=== PATIENT | male | born 2000 | race Caucasian/White ===

== ENCOUNTER 2022-01-23 02:54 | Observation (INO) | payer OTHER, SELFPAY ==
[2022-01-23 01:07] VITALS: BP 117/63; PULSE 58; RESP 17; TEMP 36.4; O2SAT 100; BMI 23.0
--- NOTE | 2022-01-23 01:11 | ADMGEN ---
This patient, Devon Ely, was admitted to Medical Room 249-01. Patient/family oriented to hospital policies and general routines including ID bracelet, bed and alarms, visiting hours, pain management, procedures, bathroom and other care routines, personal items, smoking policy, room service/diet, and visiting hours. Information on how to activate the Rapid Response Team has been discussed. Patient/Family are encouraged to report perceived risks to care and to ask questions if they do not understand what they are told or what they should do.
--- NOTE | 2022-01-23 02:56 | PM.IMHP ---
H&P: HPI History of Present Illness Date/Time: 01/23/22 02:56 Chief Complaint: Face swelling. Narrative: This is a 21-year-old male with past medical history significant for tobacco dependence patient smokes 1 pack a day, patient comes acid direct admission from outside hospital due to right phase submandibular abscess patient had drain earlier in however reoccurred This has been going on for the last week or so, patient denies any trouble swallowing, or chills, or rigors, had a temp of 99? denies any nausea, vomiting, believes is secondary to a bad tooth. PATIENT IS HERE FOR FURTHER EVALUATION MANAGEMENT AND TREATMENT PAIR OUR ENT DOCTOR. Review of Systems Review of Systems: right face swelling at the mandible, low-grade temp. Constitutional: Constitutional: Denies body ache(s), Denies chills, Denies fatigue, Reports fever(s), Denies malaise, Denies night sweats and Denies poor appetite Eyes: Eyes: Denies change in vision ENT: Denies dysphagia, Reports facial pain, Denies hoarseness, Reports neck pain, Denies odynophagia, Denies sore throat and Reports other ( right face swelling with abscess formation at the angle of the jaw) Cardiovascular: Cardiovascular: Denies chest pain, Denies syncope, Denies irregular heart rhythm, Denies lightheadedness, Denies palpitations, Denies dyspnea on exertion and Denies paroxysmal nocturnal dyspnea Respiratory: Respiratory: Denies chest congestion, Denies cough, Denies excessive phlegm production, Denies pain on inspiration and Denies dyspnea Gastrointestinal: Gastrointestinal: Denies dyspepsia, Denies heartburn, Denies diarrhea, Denies nausea and Denies vomiting Genitourinary: Genitourinary: Denies dysuria Musculoskeletal: Musculoskeletal: Denies back pain, Denies myalgias, Denies joint swelling and Denies muscle weakness Integumentary/Breasts: Skin/Breast: Denies rash Neurologic: Denies vertigo, Denies dizziness, Denies focal weakness and Denies Sensory deficit (Neuro) Psychiatric: Psychiatric: Reports no additional psychiatric complaints and Reports as per HPI Endocrine: Endocrine: Denies cold intolerance, Denies flushing, Denies heat intolerance, Denies polyphagia, Denies polydipsia and Denies palpitations Hematologic/Lymphatic: Hematologic/Lymphatic: Reports no additional hematologic/lymphatic complaints and Reports as per HPI Allergic/Immunologic: Allergic/Immunologic: Reports no additional allergic/immunologic complaints and Reports as per HPI [facility] Family History Family History (Updated 01/23/22 @ 01:24 by Esau Askew RN) Sibling Asthma Grandparent Diabetes mellitus Social History Social History Smoking packs per day: 1 Smoking cigarettes per day: 20.0 Years smoked: 6 Smoking pack-years: 6.00 Smoking status: Current every day smoker Tobacco type: cigarettes Alcohol intake: current Drinks per week: 1 Substance use: never Spiritual care concerns: No Meds Home Medications and Allergies Home Medications Medication Instructions Recorded Confirmed Type No Home Medications 01/23/22 01/23/22 History Allergies Allergy/AdvReac Type Severity Reaction Status Date / Time cefaclor [From Ceclor] AdvReac Vomiting Verified 01/23/22 03:06 augmentin AdvReac Vomiting Uncoded 01/23/22 03:06 Vital Signs Vital Signs - 24 hr 01/23/22 01:05 01/23/22 01:07 Temperature 97.6 F Pulse Rate 58 L Respiratory Rate 17 Blood Pressure 117/63 Pulse Oximetry 100 Oxygen Delivery Room Air Exam Narrative: patient is laying in bed Const: General: comfortable, no acute distress, well developed, alert and awake Nutritional Appearance: average body habitus Orientation/consciousness: patient oriented x3 HENMT: Head: normal to inspection, normocephalic and atraumatic Ears: hearing grossly normal bilaterally Face and sinus: face symmetric ( asymmetric), erythema, edema, fluctuance and Facial tenderness on exam of face and sinuses (
[2022-01-23 03:34] VITALS: BP 109/64; PULSE 64; RESP 18; TEMP 36.5; O2SAT 100
[2022-01-23] MEDS: AMPICILLIN SULB 3 GM/NS 100 ML 3 GM/100 ML VIAL IVPB ×3 (04:18→17:57)
[2022-01-23] MEDS: SODIUM CHLORIDE 0.9% IV 1,000 ML 75 ML IV CONT (04:18)
[2022-01-23 05:53] LABS: Basophils Percent Auto 0.1 % (0.2-1.2); Eosinophils Absolute Auto 0.3 K/mm3 (0-0.3); Eosinophils Percent Auto 3.1 % (0-4.4); Hematocrit 40.5 % (42.0-52.0); Hemoglobin 13.7 g/dL (14.0-18.0); Immature Granulocyte Absolute 0.02 K/mm3 (0.00-0.031); Immature Granulocyte Percent A 0.2 % (0-0.5); Lymphocytes Absolute Auto 2.29 K/mm3 (0.9-3.2); Lymphocytes Percent Auto 27.4 % (18.3-44.2); Mean Corpuscular HGB Conc 33.8 g/dl (32-36); Mean Corpuscular Hemoglobin 31.8 pg (26-34); Mean Platelet Volume 9.6 fl (7.4-10.4); Monocytes Absolute Auto 0.8 K/mm3 (0.1-0.6); Neutrophils Percent Auto 60.2 % (45.5-73.1); Platelet Count Result 197 k/mm3 (150-375); Red Blood Count 4.31 M/mm3 (4.6-6.20); Red Cell Distribution Width 12.4 % (11.5-14.5); White Blood Count 8.4 K/mm3 (4.5-10.0)
[2022-01-23 06:04] LABS: Anion Gap 9 mmol/L (8-16); Blood Urea Nitrogen 12 mg/dL (9-20); Calcium 8.9 mg/dL (8.4-10.2); Carbon Dioxide 27 mmol/L (22-30); Chloride 103 mmol/L (98-107); Estimated CRCL calculation 112 ml/min; Estimated Glomerular Filt Rate > 60; Glucose 104 mg/dL (65-110); Potassium 3.6 mmol/L (3.4-5.0); Sodium 139 mmol/L (137-145)
[2022-01-23] MEDS: ENOXAPARIN 40 MG/0.4 ML SYRINGE SUB-Q (09:54)
[2022-01-23 10:15] VITALS: BP 121/70; PULSE 59; RESP 16; TEMP 36.4; O2SAT 100
[2022-01-23] MEDS: NICOTINE (*PBKC) 21 MG PATCH 1 PATCH TRANSDERM (11:59)
[2022-01-23] MEDS: SODIUM CHLORIDE 0.9% IV 1,000 ML 110 ML IV CONT ×2 (12:00→22:25)
[2022-01-23] MEDS: traMADol HCL (*CRX) 25 MG TABLET PO ×3 (13:18→22:25)
[2022-01-23 13:45] VITALS: BP 119/65; PULSE 71; RESP 16; TEMP 36.1; O2SAT 100
--- NOTE | 2022-01-23 17:31 | WPDCN ---
Assessment and Plan Assessment and plan (1) Submandibular abscess: Code(s): K12.2 - Cellulitis and abscess of mouth Status: Acute Assessment and Plan: Plan OR incision drainage of submandibular abscess transcervical will consider transoral intraoperatively. Risks discussed this is right-sided, risks discussed including bleeding infection stroke need for further procedures failure to resolve symptoms. Damage to marginal mandibular nerve damage to greater auricular nerve facial paralysis. Patient voiced understanding and agreed. Please obtain consent for incision and drainage transcervical and transoral of right submandibular abscess. NPO at midnight continue antibiotics repeat CBC a.m. 826. HPI Data of Consult Date/Time: 01/23/22 17:31 Requesting Physician: Raul Craven DO Primary Care Provider: PHYSICIAN NOT ON STAFF Consult Narrative Reason for consult: Right neck abscess Narrative: Devon Ely is a 21 year old male with multiple dental aisha CT personally reviewed demonstrates likely right-sided loculated submandibular fluid. White count did normalize today but the patient has concerning examination. Review of Systems Review of Systems: All systems reviewed & are unremarkable except as noted in HPI and below PMFSH Family History Family History (Updated 01/23/22 @ 01:24 by Esau Askew RN) Sibling Asthma Grandparent Diabetes mellitus Social History Social History Smoking packs per day: 1 Smoking cigarettes per day: 20.0 Years smoked: 6 Smoking pack-years: 6.00 Smoking status: Current every day smoker Tobacco type: cigarettes Alcohol intake: current Drinks per week: 1 Substance use: never Spiritual care concerns: No Meds Home Medications and Allergies Home Medications Medication Instructions Recorded Confirmed Type No Home Medications 01/23/22 01/23/22 History Allergies Allergy/AdvReac Type Severity Reaction Status Date / Time cefaclor [From Ceclor] AdvReac Vomiting Verified 01/23/22 03:06 augmentin AdvReac Vomiting Uncoded 01/23/22 03:06 Vital Signs Vital Signs - 24 hr 01/23/22 01:05 01/23/22 01:07 01/23/22 03:34 Temperature 36.4 C 36.5 C Pulse Rate 58 L 64 Respiratory Rate 17 18 Blood Pressure 117/63 109/64 Pulse Oximetry 100 100 Oxygen Delivery Room Air 01/23/22 08:00 01/23/22 10:15 01/23/22 13:45 Temperature 36.4 C 36.1 C L Pulse Rate 59 L 71 Respiratory Rate 16 16 Blood Pressure 121/70 119/65 Pulse Oximetry 100 100 Oxygen Delivery Room Air Exam Narrative: Right-sided ballotable induration trismus dental caries no obvious connection to the oral cavity Results Labs CBC & Chem 7: 01/23/22 05:07 01/23/22 05:07 Labs: Short CBC 01/23/22 Range/Units 05:07 WBC 8.4 (4.5-10.0) K/mm3 Hgb 13.7 L (14.0-18.0) g/dL Hct 40.5 L (42.0-52.0) % Plt Count 197 (150-375) k/mm3 BMP 01/23/22 05:07 Sodium 139 Potassium 3.6 Chloride 103 Carbon Dioxide 27 BUN 12 Creatinine 0.90 Glucose 104 Calcium 8.9
[2022-01-23 20:00] VITALS: PULSE 71; RESP 16; O2SAT 100
[2022-01-23] MEDS: MELATONIN 5 MG TABLET PO (22:26)
[2022-01-23 22:30] VITALS: BP 128/78; PULSE 62; RESP 14; TEMP 37.1; O2SAT 100
[2022-01-24] VITALS (9 sets, daily range): BP systolic 112–135; BP diastolic 71–88; PULSE 67–95; RESP 13–20; TEMP 36.3–37.1; O2SAT 96–100
[2022-01-24] MEDS: AMPICILLIN SULB 3 GM/NS 100 ML 3 GM/100 ML VIAL IVPB ×4 (00:03→17:37)
--- NOTE | 2022-01-24 07:08 | WPDANESEPPF ---
Anes - Initial Pre Proc Eval Procedure: Operation Date: 01/24/22 13:15 Proposed Procedures p Drainage Of Submandibular Abscess,Transcervical Possible Transoral - Lnein Christensen MD Date/Time: 01/24/22 07:08 Surgeon: Raul Craven DO Pre Op Diagnosis: Right Submandibular Abscess Patient Data Age: 21 Gender: M Height: 1.75 m Weight: 70.7 kg Last Vital Signs Temp 37.1 C 01/24/22 06:40 Pulse 72 01/24/22 06:40 Resp 16 01/24/22 06:40 BP 128/79 01/24/22 06:40 Pulse Ox 98 01/24/22 06:40 O2 Del Method Room Air 01/23/22 20:00 Allergies Allergy/AdvReac Type Severity Reaction Status Date / Time cefaclor [From Ceclor] AdvReac Vomiting Verified 01/23/22 03:06 augmentin AdvReac Vomiting Uncoded 01/23/22 03:06 Home Medications Medication Instructions Recorded Confirmed Type No Home Medications 01/23/22 01/23/22 History Patient hx anesthesia problems: none Family hx anesthesia problems: none Results Review: All pre-operative results and documents have been reviewed as part of the pre-operative evaluation. FORMERLY [facility] Past Medical History Medical History (Updated 01/24/22 @ 07:09 by Fidencio Padilla MD) Submandibular abscess Tobacco dependence Family History Family History (Updated 01/23/22 @ 01:24 by Esau Askew RN) Sibling Asthma Grandparent Diabetes mellitus Social History Social History Smoking packs per day: 1 Smoking cigarettes per day: 20.0 Years smoked: 6 Smoking pack-years: 6.00 Smoking status: Current every day smoker Tobacco type: cigarettes Alcohol intake: current Drinks per week: 1 Substance use: never Spiritual care concerns: No Anes - Eval Final PreProcedure Day of Procedure 01/24/22 07:08 Patient weight: normal Heart: regular rate and rhythm Lungs: clear to auscultation and normal air movement Airway: Mallampati scale class II Neurological: alert and oriented Last oral intake: >/= 8 hours ASA classification: II Emergent: no Anesthetic plan: proceed Anesthesia type and monitoring: general LMA and ETT Results Review: All pre-operative results and documents have been reviewed as part of the pre-operative evaluation. Informed Consent: The patient's anesthetic plan and its attendant risks and benefits were discussed with the patient/family/POA. Questions were solicited and answers provided to the satisfaction of the patient/family/POA.
--- NOTE | 2022-01-24 07:55 | PM.IMHP ---
H&P: HPI History of Present Illness Date/Time: 01/24/22 07:55 Chief Complaint: Right submandibular abscess Narrative: Planned surgical procedure/at on Review of Systems Review of Systems: All systems reviewed & are unremarkable except as noted in HPI and below [facility] Past Medical History Medical History (Updated 01/24/22 @ 07:09 by Fidencio Padilla MD) Submandibular abscess Tobacco dependence Family History Family History (Updated 01/23/22 @ 01:24 by Esau Askew RN) Sibling Asthma Grandparent Diabetes mellitus Social History Social History Smoking packs per day: 1 Smoking cigarettes per day: 20.0 Years smoked: 6 Smoking pack-years: 6.00 Smoking status: Current every day smoker Tobacco type: cigarettes Alcohol intake: current Drinks per week: 1 Substance use: never Spiritual care concerns: No Meds Home Medications and Allergies Home Medications Medication Instructions Recorded Confirmed Type No Home Medications 01/23/22 01/23/22 History Allergies Allergy/AdvReac Type Severity Reaction Status Date / Time cefaclor [From Ceclor] AdvReac Vomiting Verified 01/23/22 03:06 augmentin AdvReac Vomiting Uncoded 01/23/22 03:06 Vital Signs Vital Signs - 24 hr 01/23/22 08:00 01/23/22 10:15 01/23/22 13:45 Temperature 36.4 C 36.1 C L Pulse Rate 59 L 71 Respiratory Rate 16 16 Blood Pressure 121/70 119/65 Pulse Oximetry 100 100 Oxygen Delivery Room Air 01/23/22 20:00 01/23/22 22:30 01/24/22 06:40 Temperature 37.1 C 37.1 C Pulse Rate 71 62 72 Respiratory Rate 16 14 16 Blood Pressure 128/78 128/79 Pulse Oximetry 100 100 98 Oxygen Delivery Room Air Exam Const: Other: Right submandibular induration CT with abscess. Ballotable likely abscess Assessment and Plan Assessment and plan (1) Submandibular abscess: Code(s): K12.2 - Cellulitis and abscess of mouth Status: Acute (2) Cellulitis and abscess of face: Code(s): L03.211 - Cellulitis of face; L02.01 - Cutaneous abscess of face Status: Acute Plan Plan OR transcervical incision drainage right submandibular gland abscess possible transoral risks discussed including bleeding infection failure to resolve symptoms need for further procedures damage to marginal mandibular nerve stroke need for drain placement need for prolonged hospitalization antibiotics. Patient voiced understanding and agreed.
--- NOTE | 2022-01-24 07:56 | WPDHPUPDATE1 ---
History and Physical Update Update Date/Time: 01/24/22 07:56 History and Physical has been reviewed, including an updated exam of the patient. There are NO changes in the patient's condition. Risks, benefits, and alternatives have been discussed and questions answered. Patient agrees to proceed with procedure.
[2022-01-24] MEDS: SODIUM CHLORIDE 0.9% IV 1,000 ML 110 ML IV CONT (08:40)
[2022-01-24] MEDS: NICOTINE (*PBKC) 21 MG PATCH 1 PATCH TRANSDERM (08:40)
[2022-01-24] MEDS: MORPHINE SULFATE (*CRX) 2 MG/ML INJ IV PUSH ×2 (09:24→17:42)
--- NOTE | 2022-01-24 11:50 | PC.NURSE ---
pt transferred to surgery via bed.
[2022-01-24] MEDS: LACTATED RINGERS 1,000 ML 30 ML IV CONT (12:15)
[2022-01-24] MEDS: fentaNYL CITRATE INJ (*CRX) 100 MCG/2 ML VIAL 25 MCG IV PUSH ×4 (14:52→14:58)
--- NOTE | 2022-01-24 14:56 | PM.PNGS ---
Progress Note: A&P Assessment and Plan (1) Submandibular abscess: Code(s): K12.2 - Cellulitis and abscess of mouth Status: Acute Assessment and Plan: follow-up culture data, okay to DC once appropriate oral regimen identify, daily CBC, okay for diet, if discharged prior to next week follow-up for drain removal early next week Subjective Subjective Date/Time Seen: 01/24/22 14:56 Interval history: Donze right-sided deep neck space abscess Objective Data Vital Signs Vital Signs: Vital Signs - 24 hr 01/23/22 20:00 01/23/22 22:30 01/24/22 06:40 Temperature 37.1 C 37.1 C Pulse Rate 71 62 72 Respiratory Rate 16 14 16 Blood Pressure 128/78 128/79 Pulse Oximetry 100 100 98 Oxygen Delivery Room Air Oxygen Flow Rate 01/24/22 08:30 01/24/22 11:59 01/24/22 14:35 Temperature 37.1 C 36.6 C Pulse Rate 78 79 Respiratory Rate 16 16 Blood Pressure 121/74 135/79 Pulse Oximetry 100 100 Oxygen Delivery Room Air Room Air Simple Face Mask Oxygen Flow Rate 10 01/24/22 14:45 Temperature Pulse Rate 76 Respiratory Rate 13 Blood Pressure 128/71 Pulse Oximetry 100 Oxygen Delivery Simple Face Mask Oxygen Flow Rate 10 Intake/Output Intake/Output: Intake & Output 01/21/22 01/22/22 01/23/22 01/24/22 23:59 23:59 23:59 23:59 Intake Total 2040 1300 Output Total 1325 2600 Balance 715 -1300 Meds/Results Medications: Active Medications Generic Name Dose Route Start Last Admin Trade Name Freq PRN Reason Stop Dose Admin Acetaminophen 650 mg 01/23/22 02:54 Acetaminophen 325 Mg Tablet PO Q4H PRN Mild Pain (1-3) or Fever Al Hydrox/Mg Hydrox/Simethicone 30 ml 01/23/22 02:54 Mag Hydrox/Al Hydrox/Simeth 30 Ml Udc PO QID PRN Dyspepsia Fentanyl Citrate 25 mcg 01/24/22 07:07 01/24/22 14:56 Fentanyl Citrate Inj (*Crx) 100 Mcg/2 Ml Vial IV PUSH 25 mcg Q2M PRN Administration Pain Sodium Chloride 1,000 mls @ 110 mls/hr 01/23/22 02:55 01/24/22 08:40 Normal Saline Iv IV CONT 110 mls/hr .Q9H6M TILA Administration Ampicillin Sodium/Sulbactam Sodium 3 gm in 100 mls @ 200 mls/hr 01/23/22 12:00 01/24/22 12:30 Unasyn 3 Gm/Ns 100 Ml IVPB Infused Q6HR TILA Infusion Lactated Ringer's 1,000 mls @ 30 mls/hr 01/24/22 07:10 01/24/22 14:35 Lr - Lactated Ringers Iv IV CONT 30 mls/hr .Q24H TILA Infusion Lactated Ringer's 1,000 mls @ 30 mls/hr 01/24/22 07:10 Lr - Lactated Ringers Iv IV CONT .Q24H TILA Melatonin 5 mg 01/23/22 21:00 01/23/22 22:26 Melatonin 5 Mg Tablet PO 5 mg HS TILA Administration Morphine Sulfate 2 mg 01/24/22 08:49 01/24/22 09:24 Morphine Sulfate (*Crx) 2 Mg/Ml Inj IV PUSH 2 mg Q4H PRN Administration Pain Rated 7-10 Nicotine 1 patch 01/23/22 09:00 01/24/22 08:40 Nicotine (*Pbkc) 21 Mg Patch TRANSDERM 1 patch QAM TILA Administration Ondansetron HCl 4 mg 01/23/22 02:54 Ondansetron Inj 4 Mg/2 Ml Vial IV PUSH Q6H PRN Nausea And Vomiting Ondansetron HCl 4 mg 01/24/22 07:07 Ondansetron Inj 4 Mg/2 Ml Vial IV PUSH ONCE PRN Nausea Oxycodone HCl 5 mg 01/24/22 07:07 Oxycodone Hcl (*Crx) 5 Mg Tab Ir PO ONCE PRN Pain Tramadol HCl 25 mg 01/23/22 02:54 01/23/22 22:25 Tramadol Hcl (*Crx) 25 Mg Tablet PO 25 mg Q4H PRN Administration Pain Rated 4-6
--- NOTE | 2022-01-24 14:59 | P.OP_ITS ---
Procedure Note - Detailed Date of Procedure 01/24/22 Pre-op Diagnosis Right Submandibular Abscess Post-op Diagnosis Same Procedure Performed transcervical incision and drainage of right-sided submandibular abscess Surgeon Lenin Christensen MD Medical Assistant Cardiology call Anesthesia General Indications see above Findings copious amounts of purulence drained cultured Spicer placed Description of Procedure patient identified consent verified. Patient brought operating. Time-out performed. General anesthesia induced endotracheal tube secured patient's airway. Patient prepped and draped 2nd time-out. 1 cc 1% lidocaine 1 1000 parts epinephrine injected into the subcutaneous tissue overlying the greatest area of fluctuance in the submandibular region large over the body of the mandible. Skin incised with 15 blade blunt dissection carried out abscess copious amounts of purulence identified somewhat deeper expected. This was cultured. No excessive bleeding. The abscess pocket was then further explored breaking loculations. The wound was then copiously irrigated with sterile in a sterile normal saline. Bing drain placed sutured to the skin with the 3 0 interrupted nylon suture. Blood loss about 5 cc. I performed all dictated portions of the procedure. There no complications. Patient taken to PACU in given over to Anesthesiology. Estimated Blood Loss -5.0 Urine Output 1,000 Drains Yes ( Spicer) Packing No Pathology None sent Complications No immediate complications Condition Stable Disposition PACU
--- NOTE | 2022-01-24 15:28 | PM.IMPN ---
Progress Note: A&P Assessment and Plan (1) Submandibular abscess: Code(s): K12.2 - Cellulitis and abscess of mouth Status: Acute Assessment and Plan: Likely precipitated by poor dentition as well as chronic smoking and THC use. ENT following, plan for I and D today. Continue Unasyn. Morphine p.r.n. for pain. (2) Tobacco dependence: Code(s): F17.200 - Nicotine dependence, unspecified, uncomplicated Status: Acute Assessment and Plan: Counseled patient on smoking cessation Subjective Date/time seen: 01/24/22 15:28 Patient down in the OR this afternoon for I&D. Report pain this morning and his jaw. Review of Systems Review of Systems: Ten point ROS reviewed, negative unless otherwise specified. PI Exam Narrative: patient is laying in bed Const: General: comfortable, no acute distress, well developed, alert and awake Nutritional Appearance: average body habitus Orientation/consciousness: patient oriented x3 HENMT: Head: normal to inspection, normocephalic and atraumatic Ears: hearing grossly normal bilaterally Face and sinus: face symmetric ( asymmetric), erythema, edema, fluctuance and Facial tenderness on exam of face and sinuses ( right-sided) Eyes: General: appearance normal, both eyes and all related structures Pupils: Equal, round and reactive pupils present EOM: EOMs intact bilaterally Neck: Neck: full ROM, no lymphadenopathy and no JVD Thyroid: thyroid normal Lymphatic: no lymphadenopathy noted Resp: Effort & Inspection: normal respiratory effort and able to speak in complete sentences Auscultation: clear to auscultation bilaterally Cardio: Jugular venous distension: no JVD Rate: regular rate Rhythm: regular rhythm Heart sounds: S1 normal heart sound present and S2 normal heart sound present GI: GI Palp: Yes Soft to palpation and Yes No hepatosplenomegaly present : General: Yes deferred Skin: Rashes: no rashes Wounds: no wounds Neuro: General: patient oriented x3 and CN's II-XI intact bilaterally Cranial nerves: Yes CN's II-XII intact bilaterally and Yes Equal, round and reactive pupils present Cognition (Neuro): normal cognition Speech: normal speech Gait exam (Neuro): Normal gait present Motor exam (neuro): 5/5 motor strength present throughout Extrem: General: normal to inspection, full ROM, no joint enlargement and no pedal edema Objective Data Vital Signs Vital Signs: Vital Signs - 24 hr 01/23/22 20:00 01/23/22 22:30 01/24/22 06:40 Temperature 98.7 F 98.7 F Pulse Rate 71 62 72 Respiratory Rate 16 14 16 Blood Pressure 128/78 128/79 Pulse Oximetry 100 100 98 Oxygen Delivery Room Air Oxygen Flow Rate 01/24/22 08:30 01/24/22 11:59 01/24/22 14:35 Temperature 98.7 F 97.8 F Pulse Rate 78 79 Respiratory Rate 16 16 Blood Pressure 121/74 135/79 Pulse Oximetry 100 100 Oxygen Delivery Room Air Room Air Simple Face Mask Oxygen Flow Rate 10 01/24/22 14:45 01/24/22 15:00 01/24/22 15:15 Temperature Pulse Rate 76 95 73 Respiratory Rate 13 15 20 Blood Pressure 128/71 124/88 129/83 Pulse Oximetry 100 100 96 Oxygen Delivery Room Air Room Air Room Air Oxygen Flow Rate 01/24/22 15:21 Temperature Pulse Rate 76 Respiratory Rate 15 Blood Pressure 129/81 Pulse Oximetry 96 Oxygen Delivery Room Air Oxygen Flow Rate Intake/Output Intake/Output: Intake & Output 01/21/22 01/22/22 01/23/22 01/24/22 23:59 23:59 23:59 23:59 Intake Total 2040 1500 Output Total 1325 3600 Balance 715 -2100 Meds/Results Medications: Active Medications Generic Name Dose Route Start Last Admin Trade Name Freq PRN Reason Stop Dose Admin Acetaminophen 650 mg 01/23/22 02:54 Acetaminophen 325 Mg Tablet PO Q4H PRN Mild Pain (1-3) or Fever Al Hydrox/Mg Hydrox/Simethicone 30 ml 01/23/22 02:54 Mag Hydrox/Al Hydrox/Simeth 30 Ml Udc PO QID PRN Dyspepsia Fentanyl Citrate 25 mcg 01/24/22
--- NOTE | 2022-01-24 15:32 | PC.NURSE ---
pt returned from surgery
[2022-01-24] MEDS: MELATONIN 5 MG TABLET PO (20:50)
[2022-01-25] MEDS: AMPICILLIN SULB 3 GM/NS 100 ML 3 GM/100 ML VIAL IVPB ×3 (00:14→11:57)
[2022-01-25 05:26] VITALS: BP 121/63; PULSE 63; RESP 16; TEMP 36.7; O2SAT 100
[2022-01-25 06:01] LABS: Basophils Percent Auto 0.2 % (0.2-1.2); Eosinophils Absolute Auto 0.1 K/mm3 (0-0.3); Eosinophils Percent Auto 0.9 % (0-4.4); Hematocrit 45.2 % (42.0-52.0); Hemoglobin 15.3 g/dL (14.0-18.0); Immature Granulocyte Absolute 0.05 K/mm3 (0.00-0.031); Immature Granulocyte Percent A 0.3 % (0-0.5); Lymphocytes Absolute Auto 2.56 K/mm3 (0.9-3.2); Lymphocytes Percent Auto 17.3 % (18.3-44.2); Mean Corpuscular HGB Conc 33.8 g/dl (32-36); Mean Corpuscular Hemoglobin 31.7 pg (26-34); Mean Corpuscular Volume 93.6 fl (80-100); Mean Platelet Volume 9.5 fl (7.4-10.4); Monocytes Absolute Auto 1.5 K/mm3 (0.1-0.6); Monocytes Percent Auto 9.9 % (2.6-8.5); Neutrophils Absolute Auto 10.6 K/mm3 (1.3-6.7); Neutrophils Percent Auto 71.4 % (45.5-73.1); Platelet Count Result 327 k/mm3 (150-375); Red Blood Count 4.83 M/mm3 (4.6-6.20); Red Cell Distribution Width 12.1 % (11.5-14.5); White Blood Count 14.8 K/mm3 (4.5-10.0)
[2022-01-25 08:00] VITALS: BP 118/75; PULSE 66; RESP 16; TEMP 36.4; O2SAT 99
[2022-01-25] MEDS: NICOTINE (*PBKC) 21 MG PATCH 1 PATCH TRANSDERM (08:52)
--- NOTE | 2022-01-25 09:00 | P.PNAN_ITS ---
Anes - Prog Note Post-Op Date/Time: 01/25/22 09:00 Cardiovascular status: normal Respiratory status: normal Airway patency: baseline (significant swelling remains to left jaw. no compromise to airway) Mental status: baseline Post-Op hydration status: normal Vital Signs: Last Vital Signs Temp 97.6 F 01/25/22 08:00 Pulse 66 01/25/22 08:00 Resp 16 01/25/22 08:00 BP 118/75 01/25/22 08:00 Pulse Ox 99 01/25/22 08:00 O2 Del Method Room Air 01/24/22 20:00 O2 Flow Rate 10 01/24/22 14:35 Pain Score (VAS): 0 I/O: Intake & Output 01/24/22 01/25/22 01/25/22 23:59 07:59 15:59 Intake Total 900 650 Output Total 600 Balance 300 650 Laboratory Tests 01/25/22 05:22 01/23/22 05:07 01/25/22 05:22 WBC 14.8 H RBC 4.83 Hgb 15.3 Hct 45.2 MCV 93.6 MCH 31.7 MCHC 33.8 RDW 12.1 Plt Count 327 D MPV 9.5 Immature Gran % (Auto) 0.3 Neut % (Auto) 71.4 Lymph % (Auto) 17.3 L Kendall % (Auto) 9.9 H Eos % (Auto) 0.9 Baso % (Auto) 0.2 Lymph # (Auto) 2.56 Kendall # (Auto) 1.5 H Eos # (Auto) 0.1 Baso # (Auto) 0.0 Abs Immat Gran (auto) 0.05 H Absolute Neuts (auto) 10.6 H Absolute Nucleated RBC 0.0 Nucleated RBC % 0.0 Post-procedural complaints: none Patient Feedback: Patient satisfied with anesthetic care.
[2022-01-25] MEDS: traMADol HCL (*CRX) 25 MG TABLET PO (12:42)
--- NOTE | 2022-01-25 15:43 | PM.DS ---
DS: Admitting Diagnosis Discharge Date 01/25/2022 Admitting Diagnosis Submandibular abscess DS: Summary Hospital Course Reason for hospitalization: Submandibular abscess Hospital Course: 21-year-old male presented with jaw pain. Initially evaluated at outside hospital, imaging concerning for right submandibular abscess. ENT recommended transfer over to [place] for further treatment. Patient was started on Unasyn. Status post I&D 01/[address]. Patient switched over to clindamycin 300 Q 6 H for 10 days. Patient to follow-up with ENT in the office. Of note, patient did have a spike in his white count the next day after surgery, potentially related to recent surgery follow-up as outpatient. Time Spent with Patient Time attestation: Total time spent providing and/or coordinating discharge services: Exam Narrative: patient is laying in bed Const: General: comfortable, no acute distress, well developed, alert and awake Nutritional Appearance: average body habitus Orientation/consciousness: patient oriented x3 HENMT: Head: normal to inspection, normocephalic and atraumatic Ears: hearing grossly normal bilaterally Face and sinus: face symmetric ( asymmetric), erythema and edema Other: [place] drain in place underneath gauze, saturating pad. Minimal tenderness. Swelling very much improved Eyes: General: appearance normal, both eyes and all related structures Pupils: Equal, round and reactive pupils present EOM: EOMs intact bilaterally Neck: Neck: full ROM, no lymphadenopathy and no JVD Thyroid: thyroid normal Lymphatic: no lymphadenopathy noted Resp: Effort & Inspection: normal respiratory effort and able to speak in complete sentences Auscultation: clear to auscultation bilaterally Cardio: Jugular venous distension: no JVD Rate: regular rate Rhythm: regular rhythm Heart sounds: S1 normal heart sound present and S2 normal heart sound present GI: GI Palp: Yes Soft to palpation and Yes No hepatosplenomegaly present : General: Yes deferred Skin: Rashes: no rashes Wounds: no wounds Neuro: General: patient oriented x3 and CN's II-XI intact bilaterally Cranial nerves: Yes CN's II-XII intact bilaterally and Yes Equal, round and reactive pupils present Cognition (Neuro): normal cognition Speech: normal speech Gait exam (Neuro): Normal gait present Motor exam (neuro): 5/5 motor strength present throughout Extrem: General: normal to inspection, full ROM, no joint enlargement and no pedal edema DS: Data Data Completed and Pending Labs on day of discharge: Labs from last 24 hours 01/25/22 05:22 WBC 14.8 H RBC 4.83 Hgb 15.3 Hct 45.2 MCV 93.6 MCH 31.7 MCHC 33.8 RDW 12.1 Plt Count 327 D MPV 9.5 Immature Gran % (Auto) 0.3 Neut % (Auto) 71.4 Lymph % (Auto) 17.3 L [place] % (Auto) 9.9 H Eos % (Auto) 0.9 Baso % (Auto) 0.2 Lymph # (Auto) 2.56 [place] # (Auto) 1.5 H Eos # (Auto) 0.1 Baso # (Auto) 0.0 Abs Immat Gran (auto) 0.05 H Absolute Neuts (auto) 10.6 H Absolute Nucleated RBC 0.0 Nucleated RBC % 0.0 Discharge Plan Discharge Attending physician on discharge: Raul Craven Consulting providers: Lenin Christensen Discharging Clinician: Raul Craven Patient Disposition: Home, Self-Care Activity: may shower and unlimited Diet: regular Wound Care Instructions: follow printed instructions Patient Instructions: Antibiotic Form, How to Stop Smoking (DC) Stand Alone Forms: General Discharge Information Follow-up/Referrals: Lenin Christensen MD [Physician] - Discharge Medications: New hydrocodone-acetaminophen 5-325 mg tablet 1 tablet PO Q6H PRN (Reason: pain) 3 Days Qty: 12 0RF clindamycin HCl 300 mg capsule 300 mg PO Q6H 10 Days Qty: 40 0RF Date of admission: 01/23/22 02:54 Primary Care Provider: PHYSICIAN NOT ON STAFF,NONSTAFF Admitting Provider: Chris Frazier V. Attending physician on admission: Raul Craven
[2022-01-25 16:01] VITALS: BP 116/68; PULSE 72; RESP 18; TEMP 36.9; O2SAT 99
== END 2022-01-25 16:55 | disposition home or self-care (01) ==
PROVIDERS: Otolaryngology; Admitting Provider Internal Medicine; Visit Provider Internal Medicine
PROC: (CPT 42725; principal; 2022-01-24 13:15)
DX: J39.0 Retropharyngeal and parapharyngeal abscess (principal); K12.2 Cellulitis and abscess of mouth; F17.210 Nicotine dependence, cigarettes, uncomplicated; F12.90 Cannabis use, unspecified, uncomplicated
CPT/HCPCS: 42725; 36415; 80048; 85025; 87070; 87075; 87077; 87205; 96361; 96365; 96366; 96367; 96372; 96374; A9270; G0378; G0379; J0295; J0330; J1100; J1650; J2250; J2270; J2405; J2704; J3010; J7030; J7120